=== PATIENT | male | born 1955 | race Caucasian/White ===

== ENCOUNTER → 2020-12-29 | Day surgery (SDC) | payer MEDICARE, BC ==
[~2020-12-29] MED LIST: Propofol 200 MG/20 ML SDV ONE
[2020-12-29] MEDS: Lactated Ringers 1,000 ML IV SCH (07:20)
[2020-12-29 09:30] VITALS: BP 114/68; PULSE 64
--- NOTE | 2020-12-29 12:03 | OR ---
DATE OF OPERATION: 12/29/2020 PREOPERATIVE DIAGNOSIS: HISTORY OF RECTAL CANCER. POSTOPERATIVE DIAGNOSIS: HISTORY OF RECTAL CANCER. SURGEON: Shin Reynoso MD PROCEDURE: FULL-LENGTH COLONOSCOPY. ANESTHESIA: MAC. COMPLICATIONS: None. SPECIMEN: None. FINDINGS: Normal full-length colonoscopy. INDICATIONS: Mr. Vega has a history of rectal cancer, has had a subtotal colectomy with colostomy placement in the sigmoid colon. He is due for a followup scope. DESCRIPTION OF PROCEDURE: The patient was prepped and draped, placed in the supine position. A lubricated Olympus colonoscope was inserted through the stoma site and easily advanced to the cecum. We were able to directly visualize the ileocecal valve and appendiceal orifice. The bowel prep was excellent. Upon withdrawal of the scope, throughout the entire length of the colon, I could find no signs of any polyps, masses, ulceration, or bleeding sites. No vascular abnormalities or signs of colitis. There were no diverticula. Stoma site appeared intact. Air was suctioned and the scope was removed without complication. JAMAL/SOTERO /[id number]
== END ==
LOC: CC.SDS 06:54
PROVIDERS: ATTEND Family Medicine
DX: Z12.11 Encounter for screening for malignant neoplasm of colon (principal); F17.210 Nicotine dependence, cigarettes, uncomplicated; I25.10 Atherosclerotic heart disease of native coronary artery without angina pectoris; E78.5 Hyperlipidemia, unspecified; I10 Essential (primary) hypertension; Z79.899 Other long term (current) drug therapy; Z90.49 Acquired absence of other specified parts of digestive tract; Z85.048 Personal history of other malignant neoplasm of rectum, rectosigmoid junction, and anus
CPT/HCPCS: G0105; J2704; J7120

== ENCOUNTER 2024-01-07 10:37 | Day surgery (SDC) | payer MEDICARE, OTHER ==
[2024-01-07] MEDS: Lactated Ringers 1,000 ML IV SCH (10:56)
[2024-01-07] MEDS ORDERED: fentaNYL 50 MCG/ML SDV ONE (11:15)
[2024-01-07] MEDS ORDERED: Propofol 200 MG/20 ML SDV ONE (11:15)
[2024-01-07] MEDS ORDERED: Ketamine 200 MG/20 ML MDV ONE (11:15)
[2024-01-07] MEDS ORDERED: Midazolam 1 MG/ML 2 ML SDV ONE (11:15)
[2024-01-07] MEDS ORDERED: Flumazenil 0.1 MG/ML 5 ML MDV ONE (11:15)
[2024-01-07 13:28] VITALS: BP 150/60; PULSE 65
== END 2024-01-07 12:30 | disposition home or self-care (01) ==
LOC: CC.SDS 10:37
PROVIDERS: ATTEND Family Medicine
DX: Z12.11 Encounter for screening for malignant neoplasm of colon (principal); Z85.048 Personal history of other malignant neoplasm of rectum, rectosigmoid junction, and anus; I10 Essential (primary) hypertension; I25.10 Atherosclerotic heart disease of native coronary artery without angina pectoris; E78.5 Hyperlipidemia, unspecified; Z79.899 Other long term (current) drug therapy
CPT/HCPCS: 00811; J2250; J2704; J3010; J3490; J7120